=== PATIENT | male | born 1960 | race Caucasian/White ===

== ENCOUNTER 2017-01-31 22:43 | Emergency (ER) | payer OTHER | END 2017-02-01 00:27 | disposition home or self-care (01) | LOC: ER 22:43 | DX: J10.1 Influenza due to other identified influenza virus with other respiratory manifestations (principal); J84.9 Interstitial pulmonary disease, unspecified; R06.02 Shortness of breath; R53.1 Weakness; R11.10 Vomiting, unspecified; J60 Coalworker's pneumoconiosis; I10 Essential (primary) hypertension; G89.29 Other chronic pain; Z79.899 Other long term (current) drug therapy; Z79.891 Long term (current) use of opiate analgesic; Z79.82 Long term (current) use of aspirin | CPT/HCPCS: 71020; 87400; 99283; J7040 ==

== ENCOUNTER 2017-02-02 13:35 | Observation (INO) | payer OTHER | END 2017-02-04 10:50 | disposition other institution (70) | LOC: ER 13:35 → MS 17:40 | PROVIDERS: ADMIT Family Medicine | DX: N20.0 Calculus of kidney (principal); J10.1 Influenza due to other identified influenza virus with other respiratory manifestations; J44.0 Chronic obstructive pulmonary disease with (acute) lower respiratory infection; J44.1 Chronic obstructive pulmonary disease with (acute) exacerbation; J18.9 Pneumonia, unspecified organism; J20.9 Acute bronchitis, unspecified; J60 Coalworker's pneumoconiosis; I10 Essential (primary) hypertension; K59.00 Constipation, unspecified; E87.70 Fluid overload, unspecified; R91.1 Solitary pulmonary nodule; R14.0 Abdominal distension (gaseous); Z80.9 Family history of malignant neoplasm, unspecified; Z82.49 Family history of ischemic heart disease and other diseases of the circulatory system; Z83.3 Family history of diabetes mellitus; Z79.899 Other long term (current) drug therapy; Z79.82 Long term (current) use of aspirin | CPT/HCPCS: 96361; 96365; 96366; 96367; 96372; 96375; 96376; 99285-25; G0378 ==

== ENCOUNTER 2017-02-02 13:35 | Inpatient (IN) | payer OTHER ==
[~2017-02-02] VITALS: Ht 191.8 cm; Wt 119.0 kg
[2017-02-02 15:39] LABS: URINE BILIRUBIN 1+ (NEGATIVE); URINE GLUCOSE (UA) NORMAL (NORMAL)
[2017-02-02 15:39] LABS: BASO % 0.6 % (0.2-1.2); EOS # 0.1 10_X3_uL (0.0-0.5); EOS % 1.1 % (0.8-7.0); HEMATOCRIT 42.4 % (40-51); HEMOGLOBIN 14.6 g/dL (13.7-17.5); LYMPH # 1.7 10_X3_uL (1.3-3.6); LYMPH % 26.4 % (21.8-53.1); MEAN CORPUSCULAR HEMOGLOBIN 32.2 pg (27.0-33.0); MEAN CORPUSCULAR HGB CONC 34.4 g/dL (32.0-36.0); MEAN CORPUSCULAR VOLUME 93.4 fL (79-92); MEAN PLATELET VOLUME 10.8 fl (7.5-11.5); MONO # 0.6 10_X3_uL (0.3-0.8); MONO % 8.9 % (5.3-12.2); PLATELET COUNT 162 x10_3/uL (163-337); RED BLOOD COUNT 4.54 x10_6/uL (4.6-6.1); RED CELL DISTRIBUTION WIDTH 12.7 % (11.6-14.4); WHITE BLOOD COUNT 6.3 x10_3/uL (4.2-9.1)
[2017-02-02 15:40] LABS: URINE BLOOD 2+ (NEGATIVE); URINE KETONE NEGATIVE (NEGATIVE); URINE LEUKOCYTE ESTERASE TRACE (NEGATIVE); URINE NITRATE NEGATIVE (NEGATIVE); URINE PROTEIN 1+ (NEGATIVE); UROBILINOGEN NORMAL mg/dL (<1.0)
[2017-02-02 15:41] LABS: URINE BACTERIA TRACE (NONE SEEN); URINE MUCUS 1+; URINE WBC 0-5 /[HPF] (0-3)
[2017-02-02 15:51] LABS: ALBUMIN 4.1 gm/dL (3.4-5.0); ALKALINE PHOSPHATASE 74 U/L (50-136); ALT/SGPT 28 U/L (7.53-40.17); AST/SGOT 20 U/L (6.66-35.34); BILIRUBIN,TOTAL 0.42 mg/dL (0.0-1.0); BLOOD UREA NITROGEN 9 mg/dL (7-18); CALCIUM 8.4 mg/dL (8.7-10.7); CARBON DIOXIDE 23 mmol/L (21-32); CREATININE 0.8 mg/dL (0.6-1.3); GLUCOSE,RANDOM 106 mg/dL (70-99); LIPASE 59 U/L (6.75-60.75); POTASSIUM 3.8 mmol/L (3.5-5.1); SODIUM 140 mmol/L (136-145); TOTAL PROTEIN 6.9 gm/dL (6.4-8.2)
[2017-02-04 07:01] LABS: HEMATOCRIT 39.6 % (40-51); HEMOGLOBIN 13.3 g/dL (13.7-17.5); MEAN CORPUSCULAR HEMOGLOBIN 31.9 pg (27.0-33.0); MEAN CORPUSCULAR HGB CONC 33.6 g/dL (32.0-36.0); MEAN PLATELET VOLUME 11.5 fl (7.5-11.5); RED BLOOD COUNT 4.17 x10_6/uL (4.6-6.1); RED CELL DISTRIBUTION WIDTH 12.6 % (11.6-14.4); WHITE BLOOD COUNT 8.5 x10_3/uL (4.2-9.1)
[2017-02-04 07:26] LABS: ALBUMIN 3.8 gm/dL (3.4-5.0); ALKALINE PHOSPHATASE 65 U/L (50-136); ALT/SGPT 22 U/L (7.53-40.17); AST/SGOT 13 U/L (6.66-35.34); BILIRUBIN,TOTAL 0.33 mg/dL (0.0-1.0); BLOOD UREA NITROGEN 9 mg/dL (7-18); CALCIUM 8.6 mg/dL (8.7-10.7); CARBON DIOXIDE 23 mmol/L (21-32); CREATININE 0.6 mg/dL (0.6-1.3); GLUCOSE,RANDOM 150 mg/dL (70-99); POTASSIUM 4.2 mmol/L (3.5-5.1); SODIUM 142 mmol/L (136-145); TOTAL PROTEIN 6.7 gm/dL (6.4-8.2)
[2017-02-05 07:36] LABS: BASO % 0.1 % (0.2-1.2); GRAN # 12.2 10_X3_uL (1.8-5.4); GRAN % 87.9 % (34.0-67.9); HEMATOCRIT 40.4 % (40-51); HEMOGLOBIN 13.6 g/dL (13.7-17.5); LYMPH # 1.3 10_X3_uL (1.3-3.6); LYMPH % 9.6 % (21.8-53.1); MEAN CORPUSCULAR HEMOGLOBIN 32.2 pg (27.0-33.0); MEAN CORPUSCULAR HGB CONC 33.7 g/dL (32.0-36.0); MEAN CORPUSCULAR VOLUME 95.5 fL (79-92); MEAN PLATELET VOLUME 11.3 fl (7.5-11.5); MONO # 0.3 10_X3_uL (0.3-0.8); MONO % 2.4 % (5.3-12.2); PLATELET COUNT 191 x10_3/uL (163-337); RED BLOOD COUNT 4.23 x10_6/uL (4.6-6.1); RED CELL DISTRIBUTION WIDTH 12.8 % (11.6-14.4); WHITE BLOOD COUNT 13.9 x10_3/uL (4.2-9.1)
[2017-02-05 07:49] LABS: ALBUMIN 3.9 gm/dL (3.4-5.0); ALKALINE PHOSPHATASE 61 U/L (50-136); ALT/SGPT 20 U/L (7.53-40.17); AST/SGOT 12 U/L (6.66-35.34); BILIRUBIN,TOTAL 0.24 mg/dL (0.0-1.0); BLOOD UREA NITROGEN 15 mg/dL (7-18); CALCIUM 8.7 mg/dL (8.7-10.7); CARBON DIOXIDE 24 mmol/L (21-32); CREATININE 0.7 mg/dL (0.6-1.3); GLUCOSE,RANDOM 140 mg/dL (70-99); POTASSIUM 3.8 mmol/L (3.5-5.1); SODIUM 144 mmol/L (136-145); TOTAL PROTEIN 6.6 gm/dL (6.4-8.2)
[2017-02-06 06:40] LABS: BASO % 0.1 % (0.2-1.2); GRAN # 12.7 10_X3_uL (1.8-5.4); GRAN % 85.3 % (34.0-67.9); HEMATOCRIT 39.5 % (40-51); LYMPH # 1.6 10_X3_uL (1.3-3.6); LYMPH % 10.9 % (21.8-53.1); MEAN CORPUSCULAR HEMOGLOBIN 31.8 pg (27.0-33.0); MEAN CORPUSCULAR HGB CONC 35.4 g/dL (32.0-36.0); MEAN CORPUSCULAR VOLUME 89.8 fL (79-92); MONO # 0.6 10_X3_uL (0.3-0.8); MONO % 3.7 % (5.3-12.2); PLATELET COUNT 216 x10_3/uL (163-337); RED CELL DISTRIBUTION WIDTH 13.1 % (11.6-14.4); WHITE BLOOD COUNT 14.9 x10_3/uL (4.2-9.1)
[2017-02-06 06:57] LABS: ALKALINE PHOSPHATASE 60 U/L (50-136); ALT/SGPT 25 U/L (7.53-40.17); AST/SGOT 14 U/L (6.66-35.34); BILIRUBIN,TOTAL 0.28 mg/dL (0.0-1.0); CALCIUM 8.8 mg/dL (8.7-10.7); CARBON DIOXIDE 26 mmol/L (21-32); CREATININE 0.7 mg/dL (0.6-1.3); GLUCOSE,RANDOM 184 mg/dL (70-99); SODIUM 143 mmol/L (136-145); TOTAL PROTEIN 6.6 gm/dL (6.4-8.2)
[2017-02-06 07:24] LABS: BLOOD UREA NITROGEN 19 mg/dL (7-18)
== END 2017-02-06 13:00 | disposition home or self-care (01) | DRG 693 ==
LOC: ER 13:35 → MS 17:40 → UNDODEPER 02-04 19:19 → MS 02-06 13:00
PROVIDERS: Family Medicine; ADMIT Family Medicine
DX: N20.0 Calculus of kidney (principal); J18.9 Pneumonia, unspecified organism; J44.0 Chronic obstructive pulmonary disease with (acute) lower respiratory infection; J44.1 Chronic obstructive pulmonary disease with (acute) exacerbation; J20.9 Acute bronchitis, unspecified; J10.1 Influenza due to other identified influenza virus with other respiratory manifestations; J60 Coalworker's pneumoconiosis; I10 Essential (primary) hypertension; Z80.9 Family history of malignant neoplasm, unspecified; Z82.49 Family history of ischemic heart disease and other diseases of the circulatory system; Z83.3 Family history of diabetes mellitus; K59.00 Constipation, unspecified; E87.70 Fluid overload, unspecified; Z79.899 Other long term (current) drug therapy; Z79.82 Long term (current) use of aspirin; R91.1 Solitary pulmonary nodule; R14.0 Abdominal distension (gaseous)
CPT/HCPCS: 36415; 71020; 71250; 74000; 74150; 80053; 81001; 83690; 85025; 94640; 94664; 94760; 96361; 96374; 96375; 96376; 99070; 99285-25; J1170; J2920